=== PATIENT | female | born 1970 | race Asian ===

== ENCOUNTER 2016-09-20 21:34 | Emergency (ER) | payer OTHER ==
[~2016-09-20] VITALS: Ht 162.6 cm; Wt 58.1 kg
[2016-09-20 21:52] VITALS: BP 150/87
[2016-09-20 22:36] LABS: Basophils # (auto) 0 uL; Basophils % (auto) 0.1 % (0.0-2.0); Eosinophils # (auto) 0 uL; Eosinophils % (auto) 0.4 % (0.0-7.0); Hematocrit 39.8 % (36.0-46.0); Hemoglobin 13.5 g/dL (12.2-16.2); Lymphocytes # (auto) 0.7 uL; Lymphocytes % (auto) 10.2 % (10.0-50.0); Mean Corpuscular Volume 88.4 fL (80.0-100.0); Monocytes # (auto) 0.8 uL; Monocytes % (auto) 11.5 % (0.0-12.0); Neutrophils # (auto) 5.5 uL; Neutrophils % (auto) 77.8 % (37.0-80.0); Platelet Count (auto) 74 10^3/uL (140-450); Red Cell Distribution Width 13.7 % (11.6-16.0); White Blood Cell 7.1 10^3/uL (4.4-10.8)
[2016-09-20 22:55] LABS: Albumin 3.8 g/dL (3.4-5.0); Alkaline Phosphatase 72 U/L (45-117); Anion Gap 6 (5-15); Aspartate Aminotransferase 44 U/L (15-37); BUN/Creatinine Ratio 16.5; Bilirubin, Total 1.2 mg/dL (0.2-1.0); Blood Urea Nitrogen 15 mg/dL (7-18); Calcium 8.4 mg/dL (8.5-10.1); Carbon Dioxide 30 mmol/L (21-32); Chloride 103 mmol/L (98-107); GFR African American 85 mL/min; GFR Non-African American 70 mL/min; Glucose 152 mg/dL (74-106); Magnesium 2.3 mg/dL (1.6-2.6); Potassium 3.6 mmol/L (3.5-5.1); Sodium 139 mmol/L (136-145); Total Protein 7.7 g/dL (6.4-8.2)
[2016-09-20 23:14] LABS: Urine Bilirubin Negative (Negative); Urine Color Red (Yellow); Urine Glucose Normal (Normal); Urine Ketone Negative (Negative); Urine Nitrite Negative (Negative); Urine RBC 4699 /hpf (0 - 4); Urine Urobilinogen Normal (Negative)
[2016-09-20 23:23] LABS: Urine Blood 3+ /uL (Negative)
== END 2016-09-20 23:06 | disposition left against medical advice (07) ==
LOC: ER 21:44
DX: R10.9 Unspecified abdominal pain (principal); Z53.21 Procedure and treatment not carried out due to patient leaving prior to being seen by health care provider
CPT/HCPCS: 36415; 80053; 81001; 83690; 83735; 84484; 84702; 85025; 93005